=== PATIENT | female | born 1950 | race Caucasian/White ===

== ENCOUNTER 2021-01-28 10:53 | Emergency (ER) | payer MEDICARE, SELFPAY ==
[2021-01-28] VITALS (7 sets, daily range): BP systolic 111–178; BP diastolic 63–87; PULSE 56–94; RESP 14–16; TEMP 36.8; O2SAT 93–100; BMI 18.3
--- NOTE | 2021-01-28 11:29 | XR_ITS ---
PROCEDURE: XR CHEST PORTABLE CLINICAL HISTORY: cardiac work up COMPARISON: CR CXR1 CHEST-PORTABLE from 10/10/2012 CR CXR1 CHEST-PORTABLE from 11/25/2013 FINDINGS: The cardiomediastinal silhouette and pulmonary vascularity are within normal limits. COPD changes suspected. There is some calcification of the aortic arch. No lobar consolidation or collapse. Lumbar scoliosis convex left. IMPRESSION: No acute findings. Dictated by: Juan Luis Medrano MD 01/28/2021 12:15 Juan Luis Medrano MD in [place] 01/28/2021 12:15
--- NOTE | 2021-01-28 11:29 | [facility].EDNVD ---
ED Disposition Clinical Impression: Vomiting alone Disposition: Home, Self-Care Condition on Discharge: Good Instructions: DI for Nausea -- Adult, Nausea and Vomiting-Adult Additional Instructions: Please keep all follow-up appointments as scheduled. Take a clear liquid diet for the first day or 2 and then slowly advance your diet as tolerated. Return to the emergency department if you feel worse in any way. Referrals: Cm Le [Primary Care Provider] - - Critical Care Critical Care Time: No Attestation: On 01/28/21, the high probability of a clinically significant, sudden or life threatening deterioration of the following system(s) required my full and direct attention, intervention and personal management. The time I documented below is in addition to time spent performing reported procedures but includes the following listed in this critical care notation. Medical Decision Making - Medical Records Medical records reviewed: Yes: I reviewed the patient's medical records. - Aleks Inquiry Pt receiving controlled substance: No Vital Signs: 01/28/21 10:54 01/28/21 11:21 01/28/21 11:30 Temperature 98.2 F Temperature Source Oral Pulse Rate 59 L 60 Pulse Rate [Right] 72 Respiratory Rate 16 Blood Pressure 178/80 H 178/80 H Blood Pressure [Right Arm] 178/80 H Blood Pressure Mean [Right Arm] 112 Blood Pressure Source 02 Sat by Pulse Oximetry 99 99 98 Oxygen Delivery Method Room Air 01/28/21 12:39 01/28/21 13:00 01/28/21 13:54 Temperature Temperature Source Pulse Rate 94 H 57 L 56 L Pulse Rate [Right] Respiratory Rate 14 16 Blood Pressure 117/87 111/76 154/63 H Blood Pressure [Right Arm] Blood Pressure Mean [Right Arm] Blood Pressure Source Automatic Cuff 02 Sat by Pulse Oximetry 99 100 93 L Oxygen Delivery Method 01/28/21 13:56 Temperature 98.2 F Temperature Source Oral Pulse Rate 56 L Pulse Rate [Right] Respiratory Rate 16 Blood Pressure 154/63 H Blood Pressure [Right Arm] Blood Pressure Mean [Right Arm] Blood Pressure Source 02 Sat by Pulse Oximetry Oxygen Delivery Method Room Air - Lab Data Lab Results 01/28/21 10:40: WBC 9.3, RBC 4.16 L, Hgb 14.1, Hct 41.9, MCV 100.6 H, MCH 33.8 H, MCHC 33.6, RDW 13.5, Plt Count 231, MPV 8.2, Neut % (Auto) 79.2, Lymph % (Auto) 10.9, [place] % (Auto) 2.8, Eos % (Auto) 6.6, Baso % (Auto) 0.4, Neut # (Auto) 7.4, Lymph # (Auto) 1.0, [place] # (Auto) 0.3, Eos # (Auto) 0.6 H, Baso # (Auto) 0.0 01/28/21 10:40: Sodium 140, Potassium 3.7, Chloride 104, Carbon Dioxide 26, Anion Gap 13.7, BUN 16, Creatinine 0.80, Estimated Creat Clear 39, Estimated GFR 71, Est GFR ( Amer) 85, Glucose 112 H, Calcium 9.1, Troponin I < 0.01 Result diagrams: 01/28/21 10:40 01/28/21 10:40 Orders (Tests/Meds): ED MEDICATIONS Discontinued Medications Generic Name Dose Route Start Last Admin Trade Name Freq PRN Reason Stop Dose Admin Aspirin 324 mg 01/28/21 11:29 01/28/21 11:36 Aspirin 81mg Chewable Tablet PO 01/28/21 11:30 324 mg ONCE ONE Administration - Radiology Data #1 Image(s): Chest Image Reviewed: Yes I reviewed the patient's radiology results, Yes I reviewed the patient's radiology image, Yes I have reviewed radiologist's interpretation Preliminary Findings: Normal/NAD - ECG Data Tracing #1 I reviewed this ECG and interpreted as documented below: ECG was done around 1142 on January 28. It shows a normal sinus rhythm with a ventricular rate of 63. There is no acute ischemia evident. There are no dysrhythmias. She has a mildly prolonged QT interval. Normal Sinus Rhythm: Yes Medical Decision Narrative: Patient's work-up in the emergency department today did not reveal any life-threatening or dangerous conditions. The patient's troponin was undetectable. Her EKG does not show any acute ischemia. Her chest x-ray does not show any acute disease. She does not have any serious electro
--- NOTE | 2021-01-28 11:42 | ECG_ITS ---
APPROVED REPORT Exam: Resting ECG HR:63 bpm ECG Measurements Heart Rate 63 AXES MI 118 P 80 QRSd 74 QRS 75 QT 470 T 120 QTc 480 Conclusion Normal sinus rhythm Possible Left atrial enlargement Nonspecific ST and T wave abnormality Prolonged QT Abnormal ECG Electronically signed by : Keyshawn Hernandez, 01/30/2021 21:41:28
[2021-01-28 11:50] LABS: Basophils % 0.4 % (0.1-2.0); Eosinophils # 0.6 K/mm3 (0.0-0.4); Eosinophils % 6.6 % (0.1-12.0); Hematocrit 41.9 % (37.0-47.0); Hemoglobin 14.1 g/dL (12.2-16.2); Lymphocytes % 10.9 % (10-50); Mean Corpuscular HGB Conc 33.6 g/dL (31.8-35.4); Mean Corpuscular Hemoglobin 33.8 pg (27.0-31.2); Mean Corpuscular Volume 100.6 fl (81-99); Mean Platelet Volume 8.2 fl (7.4-10.4); Monocytes # 0.3 K/mm3 (0.1-1.0); Monocytes % 2.8 % (1.7-9.3); Neutrophils # 7.4 K/mm3 (1.8-7.8); Neutrophils % 79.2 % (37.0-80.0); Platelet Count 231 K/mm3 (142-424); Red Blood Count 4.16 M/mm3 (4.20-5.40); Red Cell Distribution Width 13.5 % (11.5-17.5); White Blood Count 9.3 K/mm3 (4.8-10.8)
[2021-01-28 11:57] LABS: Chloride 104 mmol/L (98-107); Potassium 3.7 mmoL/L (3.5-5.1); Sodium 140 mmol/L (136-145)
[2021-01-28 12:00] LABS: Blood Urea Nitrogen 16 mg/dl (7-17); Creatinine Clearance Estimated 39 mL/min (50-200); Estimated Glomerular Filt Rate 71 ml/min (>60); GFR (African American) 85 ML/MIN (>60)
[2021-01-28 12:01] LABS: Calcium 9.1 mg/dl (8.4-10.2); Carbon Dioxide 26 mmol/L (22.0-30.0); Glucose 112 mg/dl (74-100)
[2021-01-28 12:17] LABS: Troponin I < 0.01 ng/ml (0.00-0.034)
[2021-01-28 13:33] LABS: Anion Gap 13.7 mEq/L (5-15)
== END 2021-01-28 13:56 | disposition home or self-care (01) ==
PROVIDERS: Emergency Provider Emergency Medicine; PCP Pediatrics
DX: R11.2 Nausea with vomiting, unspecified (principal); M79.602 Pain in left arm; I25.2 Old myocardial infarction; Z88.1 Allergy status to other antibiotic agents
CPT/HCPCS: 71045; 80048; 84484; 85025; 93005; 99283